=== PATIENT | female | born 1965 | race Asian ===

== ENCOUNTER 2018-03-12 09:15 | Outpatient (CLI) | payer OTHER | END 2018-03-12 21:12 | disposition home or self-care (01) | LOC: SMI 09:15 | PROVIDERS: ATTEND Psychiatry & Neurology Neurology | DX: G43.009 Migraine without aura, not intractable, without status migrainosus (principal) | CPT/HCPCS: 70551 ==

== ENCOUNTER 2018-08-21 10:15 | Emergency (ER) | payer OTHER ==
[~2018-08-21] VITALS: Ht 167.6 cm; Wt 63.0 kg
[2018-08-21 10:22] VITALS: BP_SYST 162
--- NOTE | 2018-08-21 10:26 | NUR ---
Patient to ER bed 05 to gown for evaluation. Side rails up.
--- NOTE | 2018-08-21 10:32 | NUR ---
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 Patient states she was not wearing goggles. Patient states she normally wears glasses. Patient has no pain, afebrile, no signs/symptoms of distress.
--- NOTE | 2018-08-21 10:43 | NUR ---
Dr. Donato At bedside to examine patient.
--- NOTE | 2018-08-21 11:14 | NUR ---
Patient given written and verbal discharge instructions and verbalizes understanding. ER MD Donato discussed with patient the results and treatment provided. Patient in stable condition. ID arm band removed. Rx of Ofloxacin given. Patient educated on pain management and to follow up with PMD. Pain Scale 0. Opportunity for questions provided and answered. Medication side effect fact sheet provided.
[2018-08-21 11:15] VITALS: BP_SYST 154
== END 2018-08-21 11:15 | disposition home or self-care (01) ==
LOC: SED 10:15
DX: H10.212 Acute toxic conjunctivitis, left eye (principal); R03.0 Elevated blood-pressure reading, without diagnosis of hypertension
CPT/HCPCS: 99283

== ENCOUNTER 2018-10-06 09:39 | Outpatient (CLI) | payer OTHER ==
[2018-10-07 11:33] LABS: HEPATITIS B CORE AB, TOTAL Negative (Negative); HEPATITIS C VIRUS AB <0.1 s/co ratio (0.0-0.9)
[2018-10-08 08:35] LABS: HEPATITIS Be AG Negative (Negative)
[2018-10-13 04:09] LABS: HEPATITIS Be AB Negative (Negative)
== END 2018-10-06 21:20 | disposition home or self-care (01) ==
LOC: SLB 09:39
PROVIDERS: ATTEND Internal Medicine Hospice and Palliative Medicine
DX: Z77.21 Contact with and (suspected) exposure to potentially hazardous body fluids (principal); S60.949A Unspecified superficial injury of unspecified finger, initial encounter; W46.0XXA Contact with hypodermic needle, initial encounter; Y93.F9 Activity, other caregiving; Y92.239 Unspecified place in hospital as the place of occurrence of the external cause; Y99.0 Civilian activity done for income or pay
CPT/HCPCS: 36415; 86704; 86707; 86803; 87350; J7030